=== PATIENT | male | born 1980 | race African-American/Black ===

== ENCOUNTER 2017-09-13 15:15 | Emergency (ER) | payer MEDICAID ==
[~2017-09-13] VITALS: Ht 177.8 cm; Wt 89.0 kg
[2017-09-13 20:32] LABS: CLARITY URINE CLEAR (CLEAR); COLOR URINE YELLOW (YELLOW); KETONES URINE NEGATIVE (NEGATIVE); LEUKOCYTE ESTERASE URINE NEGATIVE (NEGATIVE); NITRITE URINE NEGATIVE (NEGATIVE); OCCULT BLOOD URINE 2+ (NEGATIVE); PROTEIN URINE NEGATIVE (NEGATIVE); SPECIFIC GRAVITY URINE 1.018 (1.005-1.030); UROBILINOGEN URINE 0.2 E.U./dL (0.2-1.0)
[2017-09-13 21:22] VITALS: BP 129/84
== END 2017-09-13 21:33 | disposition home or self-care (01) ==
LOC: ER 16:30
DX: S67.192A Crushing injury of right middle finger, initial encounter (principal); S60.031A Contusion of right middle finger without damage to nail, initial encounter; W22.8XXA Striking against or struck by other objects, initial encounter; Y93.89 Activity, other specified; Y92.018 Other place in single-family (private) house as the place of occurrence of the external cause
CPT/HCPCS: 73130; 81001; 99285